=== PATIENT | male | born 1985 | race Caucasian/White ===

== ENCOUNTER 2019-03-31 09:27 | Emergency (ER) | payer SELFPAY ==
[~2019-03-31] VITALS: Ht 182.9 cm; Wt 113.4 kg
[~2019-03-31 09:27] MED LIST: Cleocin HCl150 MG PO
== END 2019-03-31 13:48 | disposition home or self-care (01) ==
LOC: ER 09:27
DX: F32.9 Major depressive disorder, single episode, unspecified (principal); F29 Unspecified psychosis not due to a substance or known physiological condition
CPT/HCPCS: 99284

== ENCOUNTER 2019-04-06 19:18 | Emergency (ER) | payer OTHER ==
[~2019-04-06] VITALS: Ht 182.9 cm; Wt 113.4 kg
[2019-04-06 19:57] LABS: BASOPHILS ABSOLUTE AUTO 0.04 K/mm3 (0.00-0.23); BASOPHILS PERCENT AUTO 0 % (0-2); EOSINOPHILS ABSOLUTE AUTO 0.05 K/mm3 (0.00-0.68); EOSINOPHILS PERCENT AUTO 1 % (0-6); Hematocrit 40.3 % (37.0-53.0); Hemoglobin 13.9 g/dL (13.5-17.5); IMMATURE GRAN ABSOLUTE AUTO 0.02 K/mm3 (0.00-0.10); IMMATURE GRAN PERCENT AUTO 0 % (0-1); LYMPHOCYTES ABSOLUTE AUTO 2.35 K/mm3 (0.84-5.20); LYMPHOCYTES PERCENT AUTO 25 % (21-46); MONOCYTES ABSOLUTE AUTO 0.69 K/mm3 (0.16-1.47); MONOCYTES PERCENT AUTO 7 % (4-13); Mean Corpuscular HGB 32.9 pg (26.0-34.0); Mean Corpuscular HGB Conc 34.5 g/dL (31.5-36.5); Mean Corpuscular Volume 96 fL (80-100); Mean Platelet Volume 10.6 fL (9.1-12.4); NEUTROPHILS ABSOLUTE AUTO 6.24 K/mm3 (1.96-9.15); NEUTROPHILS PERCENT AUTO 67 % (41-73); Platelet Count 287 K/mm3 (150-400); RDW Coefficient Variation 12.1 % (11.7-14.2); RDW Standard Deviation 42.5 fL (35.1-46.3); Red Blood Cell Count 4.22 M/mm3 (4.30-5.90); White Blood Cell Count 9.39 K/mm3 (4.00-11.30)
[2019-04-06 20:04] LABS: Source, Urine Clean Catch
[2019-04-06 20:08] LABS: Bilirubin, Urine Neg (Neg); Blood, Urine 1+ (Neg); Glucose Qualitative, Urine Neg (Neg); Ketones, Urine 2+ (Neg); Leukocyte Esterase, Urine Neg (Neg); Nitrite, Urine Neg (Neg); Protein, Urine 1+ (Neg); Urobilinogen, Urine NORM (Normal)
[2019-04-06 20:13] LABS: Appearance, Urine Clear (Clear); Color, Urine Yellow (P-Yellow)
[2019-04-06 20:14] LABS: Red Blood Cells, Urine 0-2 /hpf (0-2)
[2019-04-06 20:15] LABS: Bacteria Many /hpf; Mucus Light (0-Heavy); Squamous Epithelial Cells Not Seen /hpf (Few)
[2019-04-06 20:20] LABS: Alanine Aminotransfer (ALT/SGP 96 U/L (12-78); Albumin, Blood 3.9 g/dL (3.4-5.0); Alk Phos 90 U/L (50-136); Anion Gap 7 mmol/L (6-16); Aspartate Aminotrans (AST/SGOT 41 U/L (12-37); Bilirubin, Total 0.7 mg/dL (0.1-1.0); Blood Urea Nitrogen 17 mg/dL (8-24); Bun/Creatinine Ratio 17.8 (12.0-20.0); CO2, Blood 25 mmol/L (21-32); Calcium, Blood 9.1 mg/dL (8.5-10.1); Chloride, Blood 108 mmol/L (98-108); Creatinine, Blood 0.96 mg/dL (0.60-1.20); Ethanol (Alcohol), Blood, Med <3 mg/dL; Globulin, Blood 4.1 g/dL (2.2-4.0); Glomerular Filtration Rate >60 (60-); Glucose, Blood 105 mg/dL (70-99); Potassium, Blood 3.8 mmol/L (3.5-5.5); Salicylate <1.7 mg/dL (2.8-20.0); Sodium, Blood 140 mmol/L (136-145)
[2019-04-06 20:23] LABS: Acetaminophen, Random <2.0 ug/mL (10.0-30.0)
[2019-04-06 20:29] LABS: U Amphetamine Screen DETECTED; U Barbituate Screen Not Detected; U Benzodiazapine Screen Not Detected; U Buprenorphine Screen Not Detected; U Cannabinoids Screen DETECTED; U Cocaine Screen Not Detected; U Methadone Screen Not Detected; U Methamphetamine Screen DETECTED; U Opiates Screen Not Detected; U Oxycodone Screen Not Detected; U Phencyclidine Screen Not Detected; U Propoxyphene Screen Not Detected
== END 2019-04-06 22:28 | disposition home or self-care (01) ==
LOC: ER 19:18
PROVIDERS: Physician Assistant
DX: F43.21 Adjustment disorder with depressed mood (principal); F19.10 Other psychoactive substance abuse, uncomplicated; F17.220 Nicotine dependence, chewing tobacco, uncomplicated
CPT/HCPCS: 80053; 81001; 85025; 87086; 99284; G0480; Q3014

== ENCOUNTER 2019-04-11 13:07 | Emergency (ER) | payer OTHER ==
[~2019-04-11] VITALS: Ht 182.9 cm; Wt 113.4 kg
[2019-04-11] MEDS ORDERED: ZIPR20 PO ×2 (13:14→13:16)
== END 2019-04-11 13:16 | disposition home or self-care (01) ==
LOC: ER 13:07
DX: Z76.0 Encounter for issue of repeat prescription (principal); F17.220 Nicotine dependence, chewing tobacco, uncomplicated; Z79.899 Other long term (current) drug therapy
CPT/HCPCS: 99281

== ENCOUNTER 2020-10-22 09:10 | Emergency (ER) | payer OTHER ==
[~2020-10-22] VITALS: Ht 182.9 cm; Wt 127.0 kg
[~2020-10-22 09:10] MED LIST changes: +ZIPR20 PO
== END 2020-10-22 10:02 | disposition home or self-care (01) ==
LOC: ER 09:10
DX: M77.9 Enthesopathy, unspecified (principal)
CPT/HCPCS: 99283